=== PATIENT | female | born 1955 | race Caucasian/White ===

== ENCOUNTER 2017-09-24 19:39 | Inpatient (IN) | payer MEDICAID ==
[~2017-09-24] VITALS: Ht 160 cm; Wt 59.0 kg
[2017-09-24 20:58] LABS: MCH 25.6 pg (26.0-34.0); MCHC 31.5 g/dL (31.0-37.0); MCV 81.1 fL (80.0-100.0); MEAN PLATELET VOLUME 9.3 fL (7.4-10.4); PLATELET COUNT 534 10x3/uL (130-400); RBC 2.27 10x6/uL (4.00-5.40); RDW 17.5 % (11.5-14.5)
[2017-09-24 21:02] LABS: HEMATOCRIT 18.4 % (36.0-48.0); HEMOGLOBIN 5.8 g/dL (12-16)
[2017-09-24 21:10] LABS: ALBUMIN 2.9 g/dL (3.4-5.0); ALKALINE PHOSPHATASE 138 U/L (46-116); ALT (SGPT) 63 U/L (10-68); BILIRUBIN - TOTAL 0.21 mg/dL (0.2-1.3); CALC OSMOLALITY 278 mosm/kg (275-300); CARBON DIOXIDE 28.3 mmol/L (21.0-32.0); CHLORIDE - SERUM 95 mmol/L (98-107); GLUCOSE 117 mg/dL (74-106); POTASSIUM - SERUM 4.2 mmol/L (3.5-5.1); PROTEIN - SERUM 6.9 g/dL (6.4-8.2); SODIUM 132 mmol/L (136-145); UREA NITROGEN 49 mg/dL (7-18); eGFR NON AFRICAN AMERICAN 60 mL/min (90-120)
[2017-09-24 21:11] LABS: PROTIME 12.8 SECONDS (11.6-15.0)
[2017-09-24 21:12] LABS: APPEARANCE CLEAR (CLEAR); COLOR YELLOW (YELLOW)
[2017-09-24 21:13] LABS: BILIRUBIN NEGATIVE (NEGATIVE); GLUCOSE NEGATIVE (NEGATIVE); KETONE SMALL mg/dL (NEGATIVE); NITRITE NEGATIVE (NEGATIVE); PROTEIN NEGATIVE (NEGATIVE); UROBILINOGEN NORMAL (NORMAL)
[2017-09-24 21:32] LABS: AMYLASE - SERUM 108 U/L (25-115); CREATINE KINASE 311 UL (21-215); LIPASE 105 U/L (73-393); MAGNESIUM - SERUM 1.9 mg/dL (1.8-2.4); PRO BNP 173 pg/mL (0-125)
[2017-09-24 21:34] LABS: CKMB 4.7 U/L (0.0-3.6)
[2017-09-24 21:37] LABS: BASOPHILS 1 % (0-2); EOSINOPHILS 2 % (0-7); LYMPHOCYTES 21 % (15-50); MONOCYTES 8 % (2-11); NEUTROPHILS 66 % (40-80); PLATELET ESTIMATE INCREASED
[2017-09-24 22:09] LABS: THYROID STIMULATING HORMONE 154.53 uIU/mL (0.36-3.74)
[2017-09-24 22:22] LABS: UDS - AMPHET POSITIVE QUAL (NEGATIVE); UDS - BARB NEGATIVE QUAL (NEGATIVE); UDS - BENZO NEGATIVE QUAL (NEGATIVE); UDS - COCAINE NEGATIVE QUAL (NEGATIVE); UDS - OPIATE NEGATIVE QUAL (NEGATIVE); UDS - PCP NEGATIVE QUAL (NEGATIVE); UDS - THC POSITIVE QUAL (NEGATIVE)
[2017-09-25] VITALS (20 sets, daily range): BP systolic 91–114; BP diastolic 57–76; Ht 160 cm; Wt 59.0 kg
[2017-09-25] MEDS ORDERED: SYNTHROID175 MCG PO (04:29)
[2017-09-25 06:15] LABS: BASOPHILS 0.2 % (0-2); EOSINOPHILS 0.3 % (0-7); IMMATURE GRANULOCYTES 1.9 % (0-5); MCH 27.7 pg (26.0-34.0); MCHC 32.6 g/dL (31.0-37.0); MEAN PLATELET VOLUME 9.1 fL (7.4-10.4); MONOCYTES 1.8 % (2-11); NEUTROPHILS 77.8 % (40-80)
[2017-09-25 06:23] LABS: HEMATOCRIT 27.3 % (36.0-48.0); HEMOGLOBIN 8.9 g/dL (12-16); PLATELET COUNT 245 10x3/uL (130-400); RBC 3.21 10x6/uL (4.00-5.40); WBC 9.4 10x3/uL (4.8-10.8)
[2017-09-25 06:29] LABS: INR 1.1 (0.85-1.17); PROTIME 13.8 SECONDS (11.6-15.0)
[2017-09-25 06:36] LABS: ALBUMIN 2.5 g/dL (3.4-5.0); ANION GAP 11.5 mmol/L (8-16); BILIRUBIN - TOTAL 0.5 mg/dL (0.2-1.3); CALCIUM 7.7 mg/dL (8.5-10.1); CARBON DIOXIDE 24.1 mmol/L (21.0-32.0); POTASSIUM - SERUM 3.6 mmol/L (3.5-5.1); PRE-ALBUMIN 19.4 mg/dL (18.0-35.7); PROTEIN - SERUM 5.9 g/dL (6.4-8.2)
[2017-09-25 11:57] LABS: BASOPHILS 0.1 % (0-2); EOSINOPHILS 0.4 % (0-7); HEMATOCRIT 27.5 % (36.0-48.0); IMMATURE GRANULOCYTES 0.6 % (0-5); LYMPHOCYTES 6.3 % (15-50); MCH 27.8 pg (26.0-34.0); MCHC 32.7 g/dL (31.0-37.0); MCV 84.9 fL (80.0-100.0); MEAN PLATELET VOLUME 9.1 fL (7.4-10.4); MONOCYTES 1.8 % (2-11); NEUTROPHILS 90.8 % (40-80); PLATELET COUNT 272 10x3/uL (130-400); RBC 3.24 10x6/uL (4.00-5.40); RDW 16.1 % (11.5-14.5)
[2017-09-25 12:16] LABS: WBC 18.1 10x3/uL (4.8-10.8)
[2017-09-25 19:07] LABS: HEMOGLOBIN 9.3 g/dL (12-16)
[2017-09-26] VITALS (9 sets, daily range): BP systolic 97–124; BP diastolic 63–76
[2017-09-26 04:52] LABS: BASOPHILS 0.3 % (0-2); EOSINOPHILS 2.1 % (0-7); HEMATOCRIT 27.7 % (36.0-48.0); IMMATURE GRANULOCYTES 0.6 % (0-5); LYMPHOCYTES 17.6 % (15-50); MCH 28.2 pg (26.0-34.0); MCHC 32.5 g/dL (31.0-37.0); MCV 86.8 fL (80.0-100.0); MEAN PLATELET VOLUME 9.8 fL (7.4-10.4); MONOCYTES 9.1 % (2-11); NEUTROPHILS 70.3 % (40-80); RBC 3.19 10x6/uL (4.00-5.40); RDW 16.7 % (11.5-14.5)
[2017-09-26 04:58] LABS: PLATELET COUNT 327 10x3/uL (130-400); WBC 12.6 10x3/uL (4.8-10.8)
[2017-09-26 05:03] LABS: INR 1.14 (0.85-1.17); PROTIME 14.2 SECONDS (11.6-15.0)
[2017-09-26 05:05] LABS: ALBUMIN 2.3 g/dL (3.4-5.0); ANION GAP 11.3 mmol/L (8-16); BILIRUBIN - TOTAL 0.34 mg/dL (0.2-1.3); CALCIUM 7.3 mg/dL (8.5-10.1); CARBON DIOXIDE 22.8 mmol/L (21.0-32.0); CREATININE - SERUM 0.9 mg/dL (0.6-1.3); POTASSIUM - SERUM 3.1 mmol/L (3.5-5.1); PROTEIN - SERUM 5.6 g/dL (6.4-8.2)
[2017-09-27] VITALS: BP 108/66
[2017-09-27 04:00] VITALS: BP 111/72
[2017-09-27 05:05] LABS: BASOPHILS 0.4 % (0-2); EOSINOPHILS 1.6 % (0-7); HEMATOCRIT 30.8 % (36.0-48.0); HEMOGLOBIN 10.2 g/dL (12-16); IMMATURE GRANULOCYTES 0.4 % (0-5); LYMPHOCYTES 21.9 % (15-50); MCH 28.3 pg (26.0-34.0); MCHC 33.1 g/dL (31.0-37.0); MCV 85.3 fL (80.0-100.0); MEAN PLATELET VOLUME 9.4 fL (7.4-10.4); MONOCYTES 11.3 % (2-11); NEUTROPHILS 64.4 % (40-80); PLATELET COUNT 385 10x3/uL (130-400); RBC 3.61 10x6/uL (4.00-5.40); RDW 16.3 % (11.5-14.5); WBC 13.6 10x3/uL (4.8-10.8)
[2017-09-27 05:20] LABS: ALBUMIN 2.3 g/dL (3.4-5.0); ALKALINE PHOSPHATASE 118 U/L (46-116); ALT (SGPT) 40 U/L (10-68); CALC OSMOLALITY 278 mosm/kg (275-300); CALCIUM 7.3 mg/dL (8.5-10.1); CHLORIDE - SERUM 104 mmol/L (98-107); CREATININE - SERUM 0.8 mg/dL (0.6-1.3); GLUCOSE 96 mg/dL (74-106); POTASSIUM - SERUM 3.2 mmol/L (3.5-5.1); PROTEIN - SERUM 5.9 g/dL (6.4-8.2); SODIUM 139 mmol/L (136-145); UREA NITROGEN 14 mg/dL (7-18); eGFR NON AFRICAN AMERICAN 78 mL/min (90-120)
[2017-09-27 08:03] VITALS: BP 115/70
[2017-09-27 11:56] VITALS: BP 118/77
[2017-09-27 17:02] VITALS: BP 117/81
[2017-09-27 20:00] VITALS: BP 117/78
[2017-09-28] VITALS: BP 112/74
[2017-09-28 04:00] VITALS: BP 102/67
[2017-09-28 04:36] LABS: BASOPHILS 0.4 % (0-2); EOSINOPHILS 2.1 % (0-7); HEMATOCRIT 33.3 % (36.0-48.0); HEMOGLOBIN 10.8 g/dL (12-16); IMMATURE GRANULOCYTES 0.5 % (0-5); LYMPHOCYTES 23.2 % (15-50); MCH 27.8 pg (26.0-34.0); MCHC 32.4 g/dL (31.0-37.0); MCV 85.6 fL (80.0-100.0); MEAN PLATELET VOLUME 9.6 fL (7.4-10.4); MONOCYTES 8.8 % (2-11); PLATELET COUNT 405 10x3/uL (130-400); RBC 3.89 10x6/uL (4.00-5.40); RDW 16.3 % (11.5-14.5); WBC 12.6 10x3/uL (4.8-10.8)
[2017-09-28 04:46] LABS: CALC OSMOLALITY 272 mosm/kg (275-300); CALCIUM 7.7 mg/dL (8.5-10.1); CARBON DIOXIDE 23.8 mmol/L (21.0-32.0); CHLORIDE - SERUM 103 mmol/L (98-107); CREATININE - SERUM 0.8 mg/dL (0.6-1.3); GLUCOSE 117 mg/dL (74-106); SODIUM 136 mmol/L (136-145); UREA NITROGEN 12 mg/dL (7-18); eGFR NON AFRICAN AMERICAN 78 mL/min (90-120)
[2017-09-28 05:22] LABS: POTASSIUM - SERUM 3.8 mmol/L (3.5-5.1)
[2017-09-28 09:20] VITALS: BP 111/74
[2017-09-28 13:17] VITALS: BP 101/78
[2017-09-28 17:38] VITALS: BP 100/68
[2017-09-28 20:00] VITALS: BP 112/68
[2017-09-29] VITALS: BP 111/81
[2017-09-29 06:40] LABS: BASOPHILS 0.2 % (0-2); EOSINOPHILS 2.3 % (0-7); HEMATOCRIT 33.7 % (36.0-48.0); HEMOGLOBIN 10.8 g/dL (12-16); IMMATURE GRANULOCYTES 0.3 % (0-5); LYMPHOCYTES 17.4 % (15-50); MCH 27.4 pg (26.0-34.0); MCV 85.5 fL (80.0-100.0); MEAN PLATELET VOLUME 9.7 fL (7.4-10.4); MONOCYTES 10.6 % (2-11); NEUTROPHILS 69.2 % (40-80); PLATELET COUNT 450 10x3/uL (130-400); RBC 3.94 10x6/uL (4.00-5.40); RDW 16.5 % (11.5-14.5)
[2017-09-29 06:44] LABS: WBC 16.8 10x3/uL (4.8-10.8)
[2017-09-29 07:08] LABS: CALC OSMOLALITY 268 mosm/kg (275-300); CALCIUM 7.8 mg/dL (8.5-10.1); CARBON DIOXIDE 23.9 mmol/L (21.0-32.0); CHLORIDE - SERUM 100 mmol/L (98-107); CREATININE - SERUM 0.8 mg/dL (0.6-1.3); GLUCOSE 101 mg/dL (74-106); POTASSIUM - SERUM 4.1 mmol/L (3.5-5.1); SODIUM 134 mmol/L (136-145); UREA NITROGEN 14 mg/dL (7-18); eGFR NON AFRICAN AMERICAN 78 mL/min (90-120)
[2017-09-29 08:05] VITALS: BP 108/70
[2017-09-29 12:05] VITALS: BP 111/66
[2017-09-29 17:02] VITALS: BP 100/58
[2017-09-30 02:45] VITALS: BP 97/63
[2017-09-30 04:32] VITALS: BP 115/66
[2017-09-30 05:14] LABS: BASOPHILS 0.3 % (0-2); EOSINOPHILS 2.4 % (0-7); HEMATOCRIT 32.9 % (36.0-48.0); HEMOGLOBIN 10.6 g/dL (12-16); IMMATURE GRANULOCYTES 0.5 % (0-5); LYMPHOCYTES 23.6 % (15-50); MCH 27.5 pg (26.0-34.0); MCHC 32.2 g/dL (31.0-37.0); MCV 85.5 fL (80.0-100.0); MEAN PLATELET VOLUME 9.5 fL (7.4-10.4); MONOCYTES 10.1 % (2-11); NEUTROPHILS 63.1 % (40-80); PLATELET COUNT 496 10x3/uL (130-400); RBC 3.85 10x6/uL (4.00-5.40); RDW 16.6 % (11.5-14.5); WBC 16.9 10x3/uL (4.8-10.8)
[2017-09-30 08:20] VITALS: BP 100/57
[2017-09-30 12:27] VITALS: BP 118/72
[2017-09-30 22:58] VITALS: BP 119/76
[2017-10-01 01:21] VITALS: BP 128/71
[2017-10-01 05:44] VITALS: BP 134/74
[2017-10-01 07:22] LABS: BASOPHILS 0.6 % (0-2); EOSINOPHILS 3.1 % (0-7); HEMATOCRIT 29.9 % (36.0-48.0); HEMOGLOBIN 9.6 g/dL (12-16); IMMATURE GRANULOCYTES 0.6 % (0-5); LYMPHOCYTES 25.9 % (15-50); MCH 27.6 pg (26.0-34.0); MCHC 32.1 g/dL (31.0-37.0); MCV 85.9 fL (80.0-100.0); MEAN PLATELET VOLUME 9.5 fL (7.4-10.4); MONOCYTES 9.6 % (2-11); NEUTROPHILS 60.2 % (40-80); PLATELET COUNT 521 10x3/uL (130-400); RBC 3.48 10x6/uL (4.00-5.40); RDW 16.8 % (11.5-14.5); WBC 15.4 10x3/uL (4.8-10.8)
[2017-10-01 08:32] VITALS: BP 126/72
[2017-10-01 12:07] VITALS: BP 128/74
[2017-10-02 05:10] LABS: EOSINOPHILS 3.4 % (0-7); HEMATOCRIT 33.8 % (36.0-48.0); HEMOGLOBIN 10.9 g/dL (12-16); LYMPHOCYTES 32.3 % (15-50); MCH 27.9 pg (26.0-34.0); MCHC 32.2 g/dL (31.0-37.0); MCV 86.7 fL (80.0-100.0); MEAN PLATELET VOLUME 9.5 fL (7.4-10.4); MONOCYTES 10.8 % (2-11); NEUTROPHILS 51.5 % (40-80); WBC 13.4 10x3/uL (4.8-10.8)
[2017-10-02 05:27] LABS: PLATELET COUNT 662 10x3/uL (130-400)
[2017-10-02] MEDS ORDERED: PEPCID20 MG PO (07:10)
[2017-10-02] MEDS ORDERED: FLORAJEN3 CAPS460 MG PO (07:11)
[2017-10-02] MEDS ORDERED: PROTONIX40 MG PO (07:11)
[2017-10-02] MEDS ORDERED: CARAFATE1 G/10 ML NG (07:16)
[2017-10-02] MEDS ORDERED: SENNA8.6 MG PO (07:16)
[2017-10-02] MEDS ORDERED: SYNTHROID200 MC1 PO (07:16)
[2017-10-02] MEDS ORDERED: KEFLEX500 MG PO (07:18)
[2017-10-02 08:11] VITALS: BP 136/77
== END 2017-10-02 12:05 | disposition home or self-care (01) | DRG 380 ==
LOC: D.ER 19:39 → D.ICU 09-25 00:02 → D.EDHOLD 09-25 00:02 → D.MS 09-25 00:02 → D.ICU 09-25 04:04 → D.MS 09-26 18:12
PROVIDERS: Family Medicine; Internal Medicine Gastroenterology; Nurse Practitioner Family
PROC: 0DD68ZX Extraction of Stomach, Via Natural or Artificial Opening Endoscopic, Diagnostic (ICD-10-PCS; 2017-09-25)
PROC: 0DD58ZX Extraction of Esophagus, Via Natural or Artificial Opening Endoscopic, Diagnostic (ICD-10-PCS; 2017-09-25)
PROC: 0DD98ZX Extraction of Duodenum, Via Natural or Artificial Opening Endoscopic, Diagnostic (ICD-10-PCS; principal; 2017-09-25 16:30)
DX: K22.11 Ulcer of esophagus with bleeding (principal); J18.9 Pneumonia, unspecified organism; D62 Acute posthemorrhagic anemia; A09 Infectious gastroenteritis and colitis, unspecified; K26.4 Chronic or unspecified duodenal ulcer with hemorrhage; K44.9 Diaphragmatic hernia without obstruction or gangrene; K29.71 Gastritis, unspecified, with bleeding; K21.9 Gastro-esophageal reflux disease without esophagitis; M19.90 Unspecified osteoarthritis, unspecified site; E03.9 Hypothyroidism, unspecified; K59.00 Constipation, unspecified; E87.6 Hypokalemia

== ENCOUNTER 2018-03-07 19:20 | Emergency (ER) | payer MEDICAID ==
[~2018-03-07] VITALS: Ht 160 cm; Wt 61.4 kg
[~2018-03-07 19:20] MED LIST: CARAFATE1 G/10 ML NG; FLORAJEN3 CAPS460 MG PO; KEFLEX500 MG PO; PEPCID20 MG PO; PROTONIX40 MG PO; SENNA8.6 MG PO; SYNTHROID175 MCG PO; SYNTHROID200 MC1 PO
[2018-03-07 19:28] VITALS: Ht 160 cm; Wt 61.4 kg
[2018-03-07 19:53] LABS: BASOPHILS 0.3 % (0-2); EOSINOPHILS 0.8 % (0-7); HEMATOCRIT 36.2 % (36.0-48.0); HEMOGLOBIN 11.2 g/dL (12-16); IMMATURE GRANULOCYTES 0.3 % (0-5); LYMPHOCYTES 11.5 % (15-50); MCH 22.5 pg (26.0-34.0); MCHC 30.9 g/dL (31.0-37.0); MCV 72.7 fL (80.0-100.0); MEAN PLATELET VOLUME 10.1 fL (7.4-10.4); MONOCYTES 8.5 % (2-11); NEUTROPHILS 78.6 % (40-80); RBC 4.98 10x6/uL (4.00-5.40); RDW 17.6 % (11.5-14.5); WBC 18.4 10x3/uL (4.8-10.8)
[2018-03-07 20:15] LABS: PLATELET COUNT 518 10x3/uL (130-400)
[2018-03-07 20:16] LABS: APPEARANCE CLEAR (CLEAR); BILIRUBIN NEGATIVE (NEGATIVE); COLOR YELLOW (YELLOW); GLUCOSE NEGATIVE (NEGATIVE); KETONE MODERATE mg/dL (NEGATIVE); NITRITE NEGATIVE (NEGATIVE); PROTEIN NEGATIVE (NEGATIVE); UROBILINOGEN NORMAL (NORMAL)
[2018-03-07 20:32] LABS: ALBUMIN 3.5 g/dL (3.4-5.0); ANION GAP 12.3 mmol/L (8-16); BILIRUBIN - TOTAL 0.32 mg/dL (0.2-1.3); CALCIUM 9.2 mg/dL (8.5-10.1); CARBON DIOXIDE 29.7 mmol/L (21.0-32.0); CREATININE - SERUM 0.9 mg/dL (0.6-1.3); PROTEIN - SERUM 8.3 g/dL (6.4-8.2)
[2018-03-07] MEDS ORDERED: ZOFRAN ODT4 MG/UDTAB PO (22:50)
[2018-03-07 23:19] VITALS: BP 126/84
== END 2018-03-07 23:19 | disposition home or self-care (01) ==
LOC: D.ER 19:20
PROVIDERS: Family Medicine
DX: R11.10 Vomiting, unspecified (principal); R19.7 Diarrhea, unspecified; F17.200 Nicotine dependence, unspecified, uncomplicated

== ENCOUNTER 2018-03-09 06:47 | Inpatient (IN) | payer MEDICAID ==
[~2018-03-09] VITALS: Ht 160 cm; Wt 58.6 kg
[2018-03-09] VITALS (15 sets, daily range): BP systolic 95–146; BP diastolic 52–87; Ht 160 cm; Wt 58.6 kg
--- NOTE | ~2018-03-09 | OP ---
PATIENT NAME: ARTUR MC MEDICAL RECORD: [id number] :57 LOCATION:[id number] ADMISSION DATE:03/09/18 SURGEON: JOSE LAMB MD DATE OF OPERATION: 03/09/2018 PREOPERATIVE DIAGNOSES: 1. Perforated viscus. 2. Sepsis. 3. Septic shock. 4. Acute renal failure. POSTOPERATIVE DIAGNOSES: 1. Perforated viscus 2. Sepsis. 3. Septic shock. 4. Acute renal failure. PROCEDURES: 1. Exploratory laparotomy. 2. Antrectomy with Billroth II anastomosis. 3. Ventral hernia repair without mesh. SURGEON: Jose Lamb MD REPORT OF OPERATION: The patient's abdomen was prepped and draped in sterile fashion. The patient had a very tender and distended ventral hernia preoperatively. When the patient was put to sleep, this reduced easily. A skin incision was made in the midline just above the umbilicus overlying this hernia. Electrocautery was used to dissect through the subcutaneous tissues through the hernia sac. Once we entered the abdominal cavity, I was able to find the hernia defect, which was about 2 cm in greatest diameter. We extended the incision superiorly and inferiorly around the umbilicus. Electrocautery was used to dissect through the subcutaneous tissues and fascia until we entered the abdominal cavity. Once in the abdomen, there was bilious material throughout the abdominal cavity. This was suctioned and irrigated out. As we inspected the area, we could see that there was a lot of inflammation at the distal aspect of the stomach and pylorus, and upon closer inspection, we could see there was an actual perforation with a hole going into the first portion of the duodenum. We mobilized the hepatic flexure and were able to get underneath the structure. The patient had some adhesions present from previous laparoscopic cholecystectomy. The duodenum was kocherized. Once we got underneath the duodenum, we could feel that there were any masses or lesions present posteriorly. We then entered the lesser sac using Ensure device. As we entered the lesser sac, we were able to get posterior to the stomach. We performed an antrectomy with a 70 green load HERMES stapler. The distal aspect of the stomach was then dissected free, taking down any vascular adhesions using the Ensure device. As we approached the pylorus and the duodenal ulcer, there was just this very friable tissue that was present. As we pulled up on the tissue, it actually tore off. We sent this portion of the stomach off for inspection and frozen showed there was no sign of any malignancy present. The open end of the duodenum was inspected carefully. We were eventually able to find the ampulla and this was about a 0.5 cm distal to the edge of the small bowel. Care was taken not to place any stitches through this. The duodenum was cleaned off and it was closed longitudinally using multiple interrupted 3-0 Vicryls. We then folded the small bowel over and onto some inflammatory tissue overlying and next OPERATIVE REPORT [id number] ARTUR MCL to the pancreas using multiple interrupted Lemberted 3-0 silks. Tissue appeared to lie in good position, and with manipulation of the tissue, there was no sign of any bile leaks. The patient had a Billroth II anastomosis performed by bringing up a loop of small bowel in a retrocolic fashion about 40 cm distal to the ligament of Treitz. This portion of bowel was fixed to the anterior aspect of the stomach using a 70 green load HERMES stapler. The enterotomies were then closed with a 30 blue load TA stapler and then oversewn with Lemberted 3-0 silks. The NG tube was assured that it was resting in good position in the stomach. There was no sign of any active bleeding at the conclusion of the case. We then irrigated out the abdomen with about 5 liters of normal saline until there was a good clear return of fluid. We inspected one last time to assure there was no evidence of any bile leakage, which there was none. At this point, a 19-Sudanese Alvarez drain was brought through the left abdomen and rested overlying the duodenal stump. This was sutured into place with 3-0 nylon. The midline fascia was then cleared off and the hernia defects were flattened to allow more easy closure. We then closed the fascia using running #1 loop PDS's times 2. The subcutaneous tissues were irrigated out and reapproximated loosely with interrupted 3-0 Vicryl and the skin was closed loosely with anam. Telfa was used to wick the tissues apart and dressing was applied. COMPLICATIONS: None. CONDITION: Guarded. ANESTHESIA: General endotracheal. BLOOD LOSS: 100 mL. TRANSINT:[id number] Voice Confirmation ID: [id number] DOCUMENT ID: [id number] JOSE LAMB MD at 0839 CC: [id number] DICTATION DATE: 03/09/18 1612 MULTIPLE COIL WINDER: 03/09/18 1716 ADM IN [place] [id number] [place] [id number]
[~2018-03-09 06:47] MED LIST changes: +ZOFRAN ODT4 MG/UDTAB PO
[2018-03-09 07:28] LABS: HEMOGLOBIN 14.6 g/dL (12-16); MCH 22.2 pg (26.0-34.0); MCHC 30.4 g/dL (31.0-37.0); MCV 72.8 fL (80.0-100.0); MEAN PLATELET VOLUME 10.9 fL (7.4-10.4); PLATELET COUNT 524 10x3/uL (130-400); RBC 6.59 10x6/uL (4.00-5.40)
[2018-03-09 07:56] LABS: BILIRUBIN - TOTAL 0.48 mg/dL (0.2-1.3); CALCIUM 7.3 mg/dL (8.5-10.1); MAGNESIUM - SERUM 2.1 mg/dL (1.8-2.4)
[2018-03-09 07:58] LABS: ALBUMIN 2.4 g/dL (3.4-5.0); ANION GAP 19.2 mmol/L (8-16); CARBON DIOXIDE 21.2 mmol/L (21.0-32.0); CREATININE - SERUM 2.1 mg/dL (0.6-1.3); PROTEIN - SERUM 6.1 g/dL (6.4-8.2)
[2018-03-09 07:59] LABS: POTASSIUM - SERUM 2.4 mmol/L (3.5-5.1); TROPONIN-I 0.533 ng/mL (0.000-0.060)
[2018-03-09 08:22] LABS: LYMPHOCYTES 8 % (15-50); MONOCYTES 6 % (2-11); NEUTROPHILS 70 % (40-80); PLATELET ESTIMATE INCREASED; PLATELET MORPHOLOGY PLT CLUMPS PRESENT
[2018-03-09 09:26] LABS: APPEARANCE CLOUDY (CLEAR); BILIRUBIN NEGATIVE (NEGATIVE); COLOR YELLOW (YELLOW); GLUCOSE 250 mg/dL (NEGATIVE); KETONE NEGATIVE (NEGATIVE); NITRITE NEGATIVE (NEGATIVE); PROTEIN 3+ mg/dL (NEGATIVE); UROBILINOGEN NORMAL (NORMAL)
[2018-03-09 09:27] LABS: AMORPHOUS SEDIMENT <1+ /lpf (NONE SEEN); BACTERIA MANY /hpf (NONE SEEN); MUCUS <1+ /lpf (NONE SEEN); RED CELLS - URINE 0-5 /hpf (0-5); WHITE CELLS - URINE 0-5 /hpf (0-5)
[2018-03-09 09:29] LABS: UDS - AMPHET POSITIVE QUAL (NEGATIVE); UDS - BARB NEGATIVE QUAL (NEGATIVE); UDS - BENZO NEGATIVE QUAL (NEGATIVE); UDS - COCAINE NEGATIVE QUAL (NEGATIVE); UDS - OPIATE NEGATIVE QUAL (NEGATIVE); UDS - PCP NEGATIVE QUAL (NEGATIVE); UDS - THC POSITIVE QUAL (NEGATIVE)
[2018-03-10] VITALS: BP 108/60
[2018-03-10 04:00] VITALS: BP 115/88
[2018-03-10 07:00] LABS: BASOPHILS 0.1 % (0-2); EOSINOPHILS 0 % (0-7); HEMATOCRIT 37.8 % (36.0-48.0); HEMOGLOBIN 11.8 g/dL (12-16); IMMATURE GRANULOCYTES 0.2 % (0-5); LYMPHOCYTES 12.7 % (15-50); MCH 23.1 pg (26.0-34.0); MCHC 31.2 g/dL (31.0-37.0); MEAN PLATELET VOLUME 10.9 fL (7.4-10.4); MONOCYTES 12.7 % (2-11); NEUTROPHILS 74.3 % (40-80); PLATELET COUNT 305 10x3/uL (130-400); RBC 5.11 10x6/uL (4.00-5.40); RDW 18.8 % (11.5-14.5); WBC 15.4 10x3/uL (4.8-10.8)
[2018-03-10 07:08] LABS: APTT 29.8 SECONDS (22.8-39.4); INR 1.52 (0.85-1.17); PROTIME 17.8 SECONDS (11.6-15.0)
[2018-03-10 07:13] LABS: ALBUMIN 1.9 g/dL (3.4-5.0); BILIRUBIN - TOTAL 0.64 mg/dL (0.2-1.3); CARBON DIOXIDE 21.3 mmol/L (21.0-32.0); MAGNESIUM - SERUM 1.6 mg/dL (1.8-2.4); PHOSPHOROUS 3.4 mg/dL (2.5-4.9); PROTEIN - SERUM 4.9 g/dL (6.4-8.2)
[2018-03-10 07:17] LABS: ANION GAP 13.1 mmol/L (8-16); CREATININE - SERUM 1.4 mg/dL (0.6-1.3); POTASSIUM - SERUM 3.4 mmol/L (3.5-5.1)
[2018-03-10 07:19] LABS: CALCIUM 6.9 mg/dL (8.5-10.1)
[2018-03-10 09:24] VITALS: BP 103/73
[2018-03-10 12:59] VITALS: BP 105/58
[2018-03-10 18:12] VITALS: BP 110/61
[2018-03-10 20:00] VITALS: BP 107/67
[2018-03-11] VITALS: BP 113/66
[2018-03-11 04:00] VITALS: BP 108/65
[2018-03-11 06:00] LABS: BASOPHILS 0.2 % (0-2); EOSINOPHILS 1.8 % (0-7); IMMATURE GRANULOCYTES 0.3 % (0-5); LYMPHOCYTES 15.1 % (15-50); MCH 22.8 pg (26.0-34.0); MCHC 30.9 g/dL (31.0-37.0); MCV 73.9 fL (80.0-100.0); MEAN PLATELET VOLUME 10.6 fL (7.4-10.4); MONOCYTES 7.6 % (2-11); RDW 18.7 % (11.5-14.5); WBC 12.3 10x3/uL (4.8-10.8)
[2018-03-11 06:03] LABS: HEMATOCRIT 29.1 % (36.0-48.0); PLATELET COUNT 241 10x3/uL (130-400); RBC 3.94 10x6/uL (4.00-5.40)
[2018-03-11 06:22] LABS: ALBUMIN 1.6 g/dL (3.4-5.0); ALKALINE PHOSPHATASE 71 U/L (46-116); BILIRUBIN - TOTAL 0.44 mg/dL (0.2-1.3); CALCIUM 7.2 mg/dL (8.5-10.1); CARBON DIOXIDE 22.5 mmol/L (21.0-32.0); CHLORIDE - SERUM 104 mmol/L (98-107); GLUCOSE 87 mg/dL (74-106); MAGNESIUM - SERUM 1.8 mg/dL (1.8-2.4); POTASSIUM - SERUM 3.4 mmol/L (3.5-5.1); PROTEIN - SERUM 5.2 g/dL (6.4-8.2); SODIUM 135 mmol/L (136-145)
[2018-03-11 06:43] LABS: ALT (SGPT) 18 U/L (10-68); CALC OSMOLALITY 272 mosm/kg (275-300); CREATININE - SERUM 0.8 mg/dL (0.6-1.3); PHOSPHOROUS 1.7 mg/dL (2.5-4.9); UREA NITROGEN 25 mg/dL (7-18); eGFR NON AFRICAN AMERICAN 77 mL/min (90-120)
[2018-03-11 08:41] VITALS: BP 117/66
[2018-03-11 11:58] VITALS: BP 105/62
[2018-03-11 14:57] VITALS: BP 107/68
[2018-03-11 20:32] VITALS: BP 131/62
[2018-03-12 00:44] VITALS: BP 115/69
[2018-03-12 04:26] VITALS: BP 112/68
[2018-03-12 04:46] LABS: BASOPHILS 0.2 % (0-2); EOSINOPHILS 1.8 % (0-7); HEMATOCRIT 28.9 % (36.0-48.0); HEMOGLOBIN 8.9 g/dL (12-16); IMMATURE GRANULOCYTES 0.4 % (0-5); LYMPHOCYTES 12.6 % (15-50); MCH 22.7 pg (26.0-34.0); MCHC 30.8 g/dL (31.0-37.0); MCV 73.7 fL (80.0-100.0); PLATELET COUNT 254 10x3/uL (130-400); RBC 3.92 10x6/uL (4.00-5.40); RDW 18.6 % (11.5-14.5); WBC 14.1 10x3/uL (4.8-10.8)
[2018-03-12 05:11] LABS: ALBUMIN 1.7 g/dL (3.4-5.0); ALKALINE PHOSPHATASE 77 U/L (46-116); ALT (SGPT) 22 U/L (10-68); BILIRUBIN - TOTAL 0.39 mg/dL (0.2-1.3); CALCIUM 7.8 mg/dL (8.5-10.1); CARBON DIOXIDE 23.8 mmol/L (21.0-32.0); CHLORIDE - SERUM 105 mmol/L (98-107); CREATININE - SERUM 0.7 mg/dL (0.6-1.3); GLUCOSE 84 mg/dL (74-106); POTASSIUM - SERUM 3.6 mmol/L (3.5-5.1); PROTEIN - SERUM 5.8 g/dL (6.4-8.2); SODIUM 137 mmol/L (136-145); eGFR NON AFRICAN AMERICAN 90 mL/min (90-120)
[2018-03-12 05:14] LABS: CALC OSMOLALITY 272 mosm/kg (275-300); UREA NITROGEN 13 mg/dL (7-18)
[2018-03-12 07:43] VITALS: BP 127/74
[2018-03-12 12:17] VITALS: BP 134/74
[2018-03-12 16:03] VITALS: BP 126/67
[2018-03-12 21:46] VITALS: BP 131/81
[2018-03-13 05:15] VITALS: BP 125/81
[2018-03-13 08:27] VITALS: BP 129/85
[2018-03-13 20:00] VITALS: BP 112/77
[2018-03-14 04:00] VITALS: BP 134/84
[2018-03-14 05:14] LABS: BASOPHILS 0.2 % (0-2); EOSINOPHILS 3.6 % (0-7); HEMATOCRIT 27.1 % (36.0-48.0); HEMOGLOBIN 8.7 g/dL (12-16); IMMATURE GRANULOCYTES 3.3 % (0-5); LYMPHOCYTES 17.8 % (15-50); MCH 23.5 pg (26.0-34.0); MCHC 32.1 g/dL (31.0-37.0); MCV 73.2 fL (80.0-100.0); MEAN PLATELET VOLUME 10.2 fL (7.4-10.4); MONOCYTES 15.4 % (2-11); NEUTROPHILS 59.7 % (40-80); PLATELET COUNT 298 10x3/uL (130-400); RDW 18.9 % (11.5-14.5); WBC 13.2 10x3/uL (4.8-10.8)
[2018-03-14 07:43] LABS: ALKALINE PHOSPHATASE 118 U/L (46-116); ALT (SGPT) 13 U/L (10-68); AMYLASE - SERUM 245 U/L (25-115); BILIRUBIN - TOTAL 0.42 mg/dL (0.2-1.3); CALC OSMOLALITY 276 mosm/kg (275-300); CARBON DIOXIDE 31.4 mmol/L (21.0-32.0); CHLORIDE - SERUM 101 mmol/L (98-107); CREATININE - SERUM 0.8 mg/dL (0.6-1.3); GLUCOSE 91 mg/dL (74-106); LIPASE 783 U/L (73-393); PROTEIN - SERUM 6.8 g/dL (6.4-8.2); SODIUM 140 mmol/L (136-145); UREA NITROGEN 6 mg/dL (7-18); eGFR NON AFRICAN AMERICAN 77 mL/min (90-120)
[2018-03-14 07:50] LABS: POTASSIUM - SERUM 2.8 mmol/L (3.5-5.1)
[2018-03-14 08:28] VITALS: BP 123/71
[2018-03-14 12:15] VITALS: BP 113/76
[2018-03-14 16:39] VITALS: BP 130/80
[2018-03-14 20:00] VITALS: BP 145/85
[2018-03-15 04:00] VITALS: BP 121/83
[2018-03-15 06:01] LABS: BASOPHILS 0.2 % (0-2); EOSINOPHILS 3.5 % (0-7); HEMOGLOBIN 9.6 g/dL (12-16); IMMATURE GRANULOCYTES 2.7 % (0-5); LYMPHOCYTES 17.7 % (15-50); MCH 22.6 pg (26.0-34.0); MCV 72.9 fL (80.0-100.0); MEAN PLATELET VOLUME 10.5 fL (7.4-10.4); MONOCYTES 15.8 % (2-11); NEUTROPHILS 60.1 % (40-80); RBC 4.25 10x6/uL (4.00-5.40); RDW 19.2 % (11.5-14.5); WBC 14.8 10x3/uL (4.8-10.8)
[2018-03-15 06:20] LABS: PLATELET COUNT 393 10x3/uL (130-400)
[2018-03-15 06:31] LABS: ALBUMIN 1.9 g/dL (3.4-5.0); ANION GAP 10.6 mmol/L (8-16); BILIRUBIN - TOTAL 0.39 mg/dL (0.2-1.3); CARBON DIOXIDE 29.4 mmol/L (21.0-32.0); PROTEIN - SERUM 6.5 g/dL (6.4-8.2)
[2018-03-15 21:00] VITALS: BP 136/80
[2018-03-16 04:00] VITALS: BP 107/78
[2018-03-16 08:28] VITALS: BP 125/80
[2018-03-16] MEDS ORDERED: HYDROCODONE-APA1 TAB PO (08:38)
[2018-03-16] MEDS ORDERED: ELIQUIS5 MG PO (08:38)
[2018-03-16] MEDS ORDERED: PREVPAC PA1 COMB.PKG PO (08:38)
== END 2018-03-16 15:28 | disposition home or self-care (01) | DRG 853 ==
LOC: D.ER 06:47 → D.OPS 06:47 → EDSTATUS 10:08 → D.MS 17:09 → D.OPS 17:10 → D.MS 17:10
PROVIDERS: Family Medicine; Surgery
PROC: 0DB70ZZ Excision of Stomach, Pylorus, Open Approach (ICD-10-PCS; 2018-03-09)
PROC: 0D160ZA Bypass Stomach to Jejunum, Open Approach (ICD-10-PCS; 2018-03-09)
PROC: 05H533Z Insertion of Infusion Device into Right Subclavian Vein, Percutaneous Approach (ICD-10-PCS; 2018-03-09)
PROC: 0D9670Z Drainage of Stomach with Drainage Device, Via Natural or Artificial Opening (ICD-10-PCS; 2018-03-09)
PROC: 0WQF0ZZ Repair Abdominal Wall, Open Approach (ICD-10-PCS; principal; 2018-03-09 12:00)
DX: A41.9 Sepsis, unspecified organism (principal); K26.5 Chronic or unspecified duodenal ulcer with perforation; R65.21 Severe sepsis with septic shock; N17.9 Acute kidney failure, unspecified; I82.621 Acute embolism and thrombosis of deep veins of right upper extremity; K43.9 Ventral hernia without obstruction or gangrene; K25.9 Gastric ulcer, unspecified as acute or chronic, without hemorrhage or perforation; E87.6 Hypokalemia

== ENCOUNTER → 2018-04-20 12:48 | Outpatient (CLI) | payer MEDICAID ==
[2018-03-09 18:17] VITALS: BMI 22.9
[~2018-04-20 12:48] MED LIST changes: +ELIQUIS5 MG PO; +HYDROCODONE-APA1 TAB PO; +PREVPAC PA1 COMB.PKG PO
== END | disposition home or self-care (01) ==
LOC: D.US 04-10 11:00
DX: R22.43 Localized swelling, mass and lump, lower limb, bilateral (principal)

== ENCOUNTER → 2018-05-18 12:46 | Outpatient (CLI) | payer MEDICAID ==
[2018-03-09 18:17] VITALS: BMI 22.9
== END | disposition home or self-care (01) ==
LOC: D.LAB 12:46
DX: M25.512 Pain in left shoulder (principal); E03.9 Hypothyroidism, unspecified

== ENCOUNTER → 2018-10-19 13:58 | Outpatient (CLI) | payer MEDICAID ==
[2018-03-09 18:17] VITALS: BMI 22.9
[2018-10-19 14:32] LABS: HEMATOCRIT 31.7 % (36.0-48.0); HEMOGLOBIN 9.3 g/dL (12-16); LYMPHOCYTES 23.9 % (15-50); MCH 20.7 pg (26.0-34.0); MCHC 29.3 g/dL (31.0-37.0); MCV 70.6 fL (80.0-100.0); MEAN PLATELET VOLUME 9.3 fL (7.4-10.4); NEUTROPHILS 61.7 % (40-80); PLATELET COUNT 384 10x3/uL (130-400); RBC 4.49 10x6/uL (4.00-5.40); RDW 21.5 % (11.5-14.5); WBC 9.7 10x3/uL (4.8-10.8)
[2018-10-19 15:14] LABS: ALBUMIN 3.8 g/dL (3.4-5.0); ALKALINE PHOSPHATASE 229 U/L (46-116); ALT (SGPT) 24 U/L (10-68); BILIRUBIN - TOTAL 0.43 mg/dL (0.2-1.3); CALC OSMOLALITY 278 mosm/kg (275-300); CALCIUM 8.6 mg/dL (8.5-10.1); CARBON DIOXIDE 24.1 mmol/L (21.0-32.0); CHLORIDE - SERUM 101 mmol/L (98-107); CHOL - HDL RATIO 2.7 ratio (2.3-4.1); CHOLESTEROL, TOTAL 197 mg/dL (0-200); CREATININE - SERUM 0.8 mg/dL (0.6-1.3); GLUCOSE 91 mg/dL (74-106); HDL CHOLESTEROL 72 mg/dL (32-96); LDL CHOLESTEROL 120 mg/dL (0-100); LDL-HDL RATIO 1.7 ratio (1.5-3.5); POTASSIUM - SERUM 3.7 mmol/L (3.5-5.1); PROTEIN - SERUM 8.3 g/dL (6.4-8.2); SODIUM 137 mmol/L (136-145); T4 THYROXIN - FREE 0.82 ng/dL (0.76-1.46); TRIGLYCERIDE 27 mg/dL (30-200); UREA NITROGEN 26 mg/dL (7-18); eGFR NON AFRICAN AMERICAN 77 mL/min (90-120)
[2018-10-19 15:15] LABS: THYROID STIMULATING HORMONE 75.99 uIU/mL (0.36-3.74)
== END | disposition home or self-care (01) ==
LOC: D.LAB 13:58
PROVIDERS: ATTEND Family Medicine
DX: E03.9 Hypothyroidism, unspecified (principal); D64.9 Anemia, unspecified; M19.90 Unspecified osteoarthritis, unspecified site

== ENCOUNTER → 2019-02-12 17:31 | Outpatient (CLI) | payer MEDICAID ==
[2018-03-09 18:17] VITALS: BMI 22.9
== END | disposition home or self-care (01) ==
LOC: D.LAB 17:31
PROVIDERS: ATTEND Nurse Practitioner
DX: E03.9 Hypothyroidism, unspecified (principal)

== ENCOUNTER 2020-11-25 05:47 | Inpatient (IN) | payer OTHER ==
[~2020-11-25] VITALS: Ht 160 cm; Wt 65.5 kg
[2020-11-25] VITALS (10 sets, daily range): BP systolic 127–152; BP diastolic 73–90; Ht 160 cm; Wt 65.5 kg
[~2020-11-25 05:47] MED LIST changes: +ELIQUIS2.5 MG PO; +LEVOTHYROXINE200 MCG PO; +OXYCODONE HCL5 M1 PO; +VISTARIL50 MG PO
[2020-11-25 06:16] LABS: HEMATOCRIT 39.3 % (36.0-48.0); HEMOGLOBIN 11.8 g/dL (12-16); MCH 21.9 pg (26.0-34.0); MEAN PLATELET VOLUME 10.1 fL (7.4-10.4); RBC 5.38 10x6/uL (4.00-5.40); RDW 19.4 % (11.5-14.5); WBC 12.4 10x3/uL (4.8-10.8)
[2020-11-25] MEDS ORDERED: ASPIRIN81 MG (06:53)
[2020-11-25] MEDS ORDERED: TYLENOL W/CODEI1 TAB PO (09:14)
[2020-11-25] MEDS ORDERED: BACTRIM DS TAB1 EAC1 PO (09:14)
--- NOTE | 2020-11-25 09:33 | NUR ---
PT MOANING AND GUARDING ABD.
--- NOTE | 2020-11-25 09:42 | NUR ---
PT STATING SHE CAN NOT SIT UPRIGHT. INSTRUCTED TO DEEP BREATHE. PT STATES 7/10 PAIN AFTER 25 DEM AND 1.5 OF DILAUDED. EDUCATED ON OVERSEDATION RISK. PT SLEEPS WHEN NOT DISTURBED BUT WAKES UP SCREAMING WHEN TALKED TO.
--- NOTE | 2020-11-25 10:21 | NUR ---
PER ZAHRA CARRILLO IN PACU, PT IS GOING TO BE ADMITTED. SHE HAS NOTIFIED FOR ROOM ASSIGNMENT. 1030- SAIRA CALLED AND PT ASSIGNED TO 2232.
--- NOTE | 2020-11-25 10:50 | NUR ---
PT TRANSFERRED TO RM 2232 VIA STRETCHER WITH O2 ON AT 3LPM. ALL BELONGINGS TRANSFERRED WITH PT. BEDSIDE REPORT GIVEN TO JOSE JUAN Guerrero RN. ALL QUESTIONS ANSWERED. DRESSING TO MIDLINE ABD REMAIN CDI WITH ABDOMINAL BINDER ON.
--- NOTE | 2020-11-25 11:10 | NUR ---
PATIENT TO UNIT VIA STRETCHER. BEDSIDE REPORT RECIEVED. VITAL SIGNS STABLE. PATIENT STATES PAIN 5/10. CAN BARELY STAY AWAKE LONG ENOUGHT TO ANSWER QUESTIONS. FREE FROM SIGNS OF DISTRESS. BED LOW POSITION, CALL LIGHT IN REACH. NC IN PLACE AT 3 LITERS. WILL CONTINUE TO MONITOR.
--- NOTE | 2020-11-25 20:00 | NUR ---
PT LYING IN BED SLEEPING WITHOUT DISTRESS, CL IN REACH
--- NOTE | 2020-11-25 21:00 | NUR ---
WOKE PT UP TO ASSESS AND SEE HOW PT PAIN WAS, PT YELLED AT NURSE "WHAT ARE YOU DOING?" TOLD PT WE WERE JUST CHECKING ON HER AND SEEING HOW SHE WAS DOING SINCE SHE HAS BEEN ASLEEP SINCE THIS SHIFT ARRIVED, PT STATES SHE WAS SLEEPING SO SHE WAS FINE AND STATES NOT TO COME BACK TO HER ROOM AND WAKE HER UP AGAIN. ASKED PT IF SHE NEEDED ANYTHING AND SHE STATES NO.
--- NOTE | 2020-11-25 23:00 | NUR ---
PT LYING IN BED SLEEPING WITHOUT DISTRESS, CL IN REACH. BED ALARM ON
--- NOTE | 2020-11-26 01:15 | NUR ---
PT REQUESTED PAIN MEDICATION AND ICE CHIPS AT THIS TIME. TOLD PT THAT SHE DID NOT HAVE PAIN MEDICATION ORDERED BUT THAT THIS NURSE WOULD CALL FOR ORDERS. PT BEGAN YELLING THAT SHE IS HERE FOR PAIN CONTROL AND "YOU CAN'T EVEN DO THAT RIGHT" THIS NURSE CALLED DR CABRERA AND RECIEVED ORDER FOR TYLENOL #3. GAVE PAIN MEDICATION TO PT. DENIES OTHER NEEDS AT THIS TIME. CL IN REACH
--- NOTE | 2020-11-26 02:00 | NUR ---
PT CALLED STATING SHE HAD TO GO TO BATHROOM. NURSES AID ASSISTED PT TO BATHROOM AND BACK TO BED. PT THEN STATED SHE NEEDED MORE PAIN MEDICATION, THAT TYLENOL #3 IS NOT ENOUGH. ALSO TOLD NURSES AID TO MOVE HER IV TO HER LEFT ARM BECAUSE SHE DID NOT LIKE IT IN HER RIGHT ARM. PT TOLD THAT IV WAS PATENT AND DID NOT NEED TO BE MOVED AT THIS TIME. NO REDNESS OR SWELLING AT SITE AND DRESSING INTACT. PT TOLD SHE HAD JUST HAD TYLENOL #3 AND IT HAD NOT HAD TIME TO WORK. CHARGE NURSE WAS SPEAKING WITH PT SHE WAS FALLING ASLEEP DURING CONVERSATION. CL IN REACH, BED ALARM ON
--- NOTE | 2020-11-26 02:36 | NUR ---
PT LYING IN BED SLEEPING AT THIS TIME, WITHOUT DISTRESS, CL IN REACH
--- NOTE | 2020-11-26 05:10 | NUR ---
PT LYING IN BED SLEEPING WITHOUT DISTRESS, CL IN REACH. BED ALARM ON
--- NOTE | 2020-11-26 06:10 | NUR ---
PT WOKE UP SCREAMING. THIS NURSE AND CHARGE NURSE ENTERED ROOM. PT WAS LYING IN BED, WHEN ASKED WHY SHE WAS YELLING SHE CONTINUED TO YELL STATING SHE COULD NOT FIND HER CALL LIGHT AND HAD TO GET SOMEONES ATTENTION. CALL LIGHT WAS NOTED TO BE BESIDE PATIENTS HAND. CALL LIGHT GIVEN TO PT AND EXPLAINED THAT IT WAS BESIDE HER AND PT BEGAN YELLING "ARE YOU CALLING ME A LIAR" AND "I'LL BE REPORTING THIS" PT WAS TOLD TO THAT WE WERE NOT CALLING HER A LIAR BUT THAT IT WAS IN THE BED WITH HER AND NEXT TIME WE WILL MAKE SURE SHE KNOW WHERE IT IS BEFORE LEAVING THE ROOM BUT THAT SHE DOES NOT NEED TO BE SCREAMING AT THE STAFF BECAUSE WE ARE TRYING TO HELP HER. AT THIS TIME IT WAS NOTICED PT HAD PEED IN THE BED. ELSIE CARE PROVIDED AND LINENS CHANGED. PT TOLERATED WELL. ASKED PT IF SHE WANTED TO GET DRESSED IN HER CLOTHES AND PT STATED NO THAT SHE WANTED TO PUT BACK ON A GOWN AND GO BACK TO SLEEP. REMINDED PT SHE WILL BE GOING HOME TODAY AND PT STATED NOT IF HER PAIN DID NOT GET BETTER. ASKED PT IF SHE WANTED HER TYLENOL #3 AND SHE STATED YES. BROUGHT PT PAIN MED. DENIES OTHER NEEDS. CL IN REACH, BED LOWEST POSITION AND BED ALARM ON
--- NOTE | 2020-11-26 07:27 | NUR ---
PT USES CALL LIGHT FOR ASSISTANCE. UPON ENTERING PT ROOM PT STATES "I NEED SOMETHING FOR PAIN. I KNOW IT HAS TO BE TIME. I AM HURTING TOO BAD". PT INSTRUCTED ON LAST DOSE OF PAIN MEDICATION AND OVER SEDATION AND DOSING FRQUENCY. PT STARTS SAYING EXPLICITIVES AND SAYING "THAT IS RIDICULOUS". PT EDUCATED ON NON PHARMACOLOGICAL METHODS OF PAIN CONTROL. PT DENIES NEEDS. BED IS IN THE LOWEST POSITION. CALL LIGHT AND BEDSIDE TABLE ARE WITHIN REACH. SIDE RAILS X 2. WILL NOTIFY SHIFT NURSE.
--- NOTE | 2020-11-26 07:30 | NUR ---
PATIENT SLEEPING. DC ORDER IN SINCE YESTERDAY. WILL DC PATIENT TODAY WHEN SHE WAKES UP.
--- NOTE | 2020-11-26 07:42 | NUR ---
PATIENT SKIN LAP BONDER LIGHT. STATES WANTS PAIN MEDICATION. INFORMED THAT PAIN MEDICATION IS NOT DUE FOR TWO MORE HOURS. STATES "THAT'S FUCKING RIDICULOUS." CALLED DR TABARES TO NOTIFY PATIENT WANTING MORE PAIN MEDICATION, WELL TO SEE IF MD STILL WANTS PATIENT TO DC NOW. ORDER GIVEN BY MD FOR PRN MORPHINE AND STATES WILL SEE PATIENT ON ROUNDS THIS AM TO ASSESS.
--- NOTE | 2020-11-26 07:52 | NUR ---
PRN MORPHINE AND ZOFRAN GIVEN. PATIENT DENIES FURTHER NEEDS. THANKED NURSE FOR CALLING DOCTOR ABOUT PAIN AND STATES NEEDS TO STAY ANOTHER DAY FOR PAIN CONTROL. PATIENT MADE AWARE THAT MD WAITING ON DC UNTIL SEES PATIENT THIS AM ON ROUNDS. CALL TOMLINSON IN REACH. WILL CONTINUE TO MONITOR.
[2020-11-26 09:19] VITALS: BP 99/60
--- NOTE | 2020-11-26 09:27 | NUR ---
SPOKE WITH DR TABARES VIA PHONE WHO STATES TO HOLD DC UNTIL TOMORROW. STATES OK TO PLACE DC ON HOLD ON COMPUTER.
[2020-11-26 12:50] VITALS: BP 104/64
--- NOTE | 2020-11-26 14:33 | NUR ---
PATIENT O2 SAT 88% ON ROOM AIR. SAT 93% ON 4L NC.
[2020-11-26 16:12] VITALS: BP 125/81
[2020-11-26 20:00] VITALS: BP 138/76
--- NOTE | 2020-11-26 21:15 | NUR ---
PT RESTING IN BED AT THIS TIME. COMPLAINED OF PAIN TO ABDOMEN AND ASKED FOR PAIN MEDICATION. PAIN MEDICATION WAS GIVEN AND EFFECTIVE IMMEDIATELY. NO OTHER COMPLAINTS AT THIS TIME. ABLE TO MAKE WANTS AND NEEDS KNOWN TO STAFF. BED IN LOW POSITION WITH CALL LIGHT IN REACH.
[2020-11-27 04:00] VITALS: BP 121/81
--- NOTE | 2020-11-27 07:15 | NUR ---
RESTING IN BED WITH EYES OPEN, ALERT AND ORIENTED. IV LOCATED TO RIGHT FA CURRENTLY SL. CURRENTLY RCVING 4L VIA NC. REQUESTING PAIN MEDS BUT IT HAS ONLY BEEN 30 MINUTES SINCE HER LAST DOSE, EDUCATED HER ON THIS. NO CURRENT S/S OF DISTRESS, WILL CONT TO MONITOR.
[2020-11-27 09:40] VITALS: BP 131/79
--- NOTE | 2020-11-27 10:11 | NUR ---
TRIED TO EDUCATE PT AND GIVE DC INSTRUCTIONS AND WAS CONTINUOUSLY CUT OFF AND TOLD "GIVE ME THE DAMN PAPERS TO SIGN AND LET ME SLEEP UNTIL MY RIDE GETS HERE". DC PAPERS SIGNED AND PAPER RX GIVEN TO PT. STATES SHE DOESNT KNOW WHAT TIME HER RIDE WILL BE HERE.
--- NOTE | 2020-11-27 10:30 | NUR ---
IV OUT, CATHETER TIP INTACT. PT CONTINUES TO GET AGGITATED AND YELL ABOUT NOT BEING BOTHERED UNTIL THEIR RIDE ARRIVES, WAS TOLD TO MAKE EVERYONE AWARE THAT SHE DID NOT WANT TO BE BOTHERED UNTIL SHE LEAVES!!
--- NOTE | 2020-11-27 13:30 | NUR ---
D/C`D HOME WITH DAUGHTER.
== END 2020-11-27 13:30 | disposition home or self-care (01) | DRG 940 ==
LOC: D.OPS 05:47 → D.MS 10:43 → D.OPS 11-26 16:12 → D.MS 11-26 16:12
PROVIDERS: Anesthesiology; ADMIT Surgery; ATTEND Surgery
PROC: 0WUF0JZ Supplement Abdominal Wall with Synthetic Substitute, Open Approach (ICD-10-PCS; principal; 2020-11-26)
PROC: 0DNL0ZZ Release Transverse Colon, Open Approach (ICD-10-PCS; 2020-11-26)
DX: G89.18 Other acute postprocedural pain (principal); K43.0 Incisional hernia with obstruction, without gangrene; K66.0 Peritoneal adhesions (postprocedural) (postinfection); M19.90 Unspecified osteoarthritis, unspecified site; Z86.718 Personal history of other venous thrombosis and embolism